=== PATIENT | female | born 1995 | race Caucasian/White ===

== ENCOUNTER 2020-09-20 01:41 | Emergency (ER) | payer OTHER ==
[~2020-09-20] VITALS: Ht 167.6 cm; Wt 99.8 kg
[2020-09-20 01:52] VITALS: BP 121/63
== END 2020-09-20 02:00 | disposition left against medical advice (07) ==
LOC: MED 01:41
DX: F41.0 Panic disorder [episodic paroxysmal anxiety] (principal); Z53.21 Procedure and treatment not carried out due to patient leaving prior to being seen by health care provider

== ENCOUNTER 2021-01-12 02:38 | Emergency (ER) | payer OTHER ==
[~2021-01-12] VITALS: Ht 170.2 cm; Wt 117.9 kg
[2021-01-12 02:54] VITALS: BP 122/62
--- NOTE | 2021-01-12 02:54 | NUR ---
TO BED AMBULATORY
--- NOTE | 2021-01-12 03:06 | NUR ---
PT AMBULATED TO BED 07.
--- NOTE | 2021-01-12 03:10 | NUR ---
25 YO/F BIB SELF W C/O MID-EPIGASTRIC PAIN 7/10 SHARP/PRESSURE LIKE,NON-RADIATING, INTERMITTENT X1 HOUR. PT DENIES N/V/D, CONSTIPATION OR FEVERS. DENIES CHEST PAIN OR SOB. DENIES URINARY BURNING, BLOOD INURINE OR ANY URINARY SYMPTOMS. BOWEL SOUNDS PRESENT THROUGHOUT, ABDOMEN SOFT, TENDER AT MIDEPIGASTRIC AREA. PT DENIES TAKING ANYTHING FOR PAIN. PATIENT KNEELING ON FLOOR HOLDING ABDOMEN. BREATHING EVEN AND UNLABORED. ERMD AT BEDSIDE. NAD NOTED, WILL CONTINUE TO MONITOR. PMH:THYROID DZ NKA
[2021-01-12] MEDS ORDERED: MORPHINE SULFATE 4 MG/ML SYR IM ONE (03:20)
[2021-01-12] MEDS ORDERED: ONDANSETRON 4 MG ODT PO ONE (03:20)
[2021-01-12] MEDS ORDERED: DICYCLOMINE HCL LIQUID 20 MG, ALUMINUM HYD/MAG/SIMETHICONE 30 ML, LIDOCAINE VISCOUS 2% ... PO ONE ×3 (03:20)
[2021-01-12 03:30] LABS: BASOPHILS # (AUTO) 0.1 K/uL (0.00-0.22); BASOPHILS % (AUTO) 0.6 % (0.0-2.0); EOSINOPHILS # (AUTO) 0.1 K/uL (0-0.4); EOSINOPHILS % (AUTO) 1.1 % (0.0-4.0); HEMATOCRIT 39.5 % (36-48); HEMOGLOBIN 12.6 g/dL (12.0-16.0); LYMPHOCYTES # (AUTO) 3.4 K/uL (2.5-16.5); LYMPHOCYTES % (AUTO) 27.2 % (20.5-51.1); MEAN CORPUSCULAR HEMOGLOBIN 26 pg (27-31); MEAN CORPUSCULAR HGB CONC 32 g/dL (33-37); MEAN CORPUSCULAR VOLUME 81.2 fL (80-94); MONOCYTES # (AUTO) 0.9 K/uL (0.8-1.0); MONOCYTES % (AUTO) 7.4 % (1.7-9.3); NEUTROPHILS # (AUTO) 7.9 K/uL (1.8-7.7); NEUTROPHILS % (AUTO) 63.7 % (42.2-75.2); PLATELET COUNT (AUTO) 295 K/uL (140-450); RED BLOOD CELL COUNT(AUTO) 4.86 MIL/uL (4.20-5.40); RED CELL DISTRIBUTION WIDTH 13.6 % (11.6-13.7); WHITE BLOOD COUNT (AUTO) 12.5 K/uL (4.8-10.8)
[2021-01-12 03:30] LABS: APPEARANCE,URINE SL CLOUDY (CLEAR); BILIRUBIN,URINE NEGATIVE (NEGATIVE); BLOOD, URINE 1+ (NEGATIVE); COLOR,URINE YELLOW (YELLOW); LEUKOCYTE ESTERASE ,URINE NEGATIVE (NEGATIVE); NITRITE, URINE NEGATIVE (NEGATIVE); UGLUCOSE NEGATIVE (NEGATIVE)
[2021-01-12] MEDS ORDERED: DICYCLOMINE HCL LIQUID 10 MG/5 ML UDC ONE (03:30)
[2021-01-12] MEDS ORDERED: ALUMINUM HYD/MAG/SIMETHICONE 30 ML UDC ONE (03:30)
--- NOTE | 2021-01-12 03:35 | NUR ---
PT REFUSED GI COCKTAIL, MORPHINE AND ZOFRAN MEDICATIONS AT THIS TIME. PT REPORTS SHE HAS NO PAIN AT THIS TIME.
[2021-01-12 03:36] LABS: RBC,URINE 0-5 /HPF (0-5); WBC,URINE 0-5 /HPF (0-5)
[2021-01-12 03:46] LABS: ALBUMIN 3.7 g/dL (3.4-5.0); ANION GAP 14.4 (8-16); CARBON DIOXIDE 26.1 mmol/L (21-32); CREATININE 0.8 mg/dL (0.6-1.3); POTASSIUM 3.5 mmol/L (3.5-5.1); TOTAL BILIRUBIN 0.3 mg/dL (0.0-1.0)
--- NOTE | 2021-01-12 05:04 | NUR ---
PT AMBULATED TO BATHROOM W STEADY GAIT. DENIES ANY PAIN AT THIS TIME. VSS.
[2021-01-12] MEDS ORDERED: cefTRIAXone 1,000 MG in LIDOCAINE MPF 1% 2.1 ML IM ONE ×2 (05:20→05:40)
[2021-01-12] MEDS ORDERED: cefTRIAXone 1,000 MG VIAL ONE (05:40)
[2021-01-12] MEDS ORDERED: LIDOCAINE MPF 1% 5 ML ONE (05:40)
--- NOTE | 2021-01-12 07:12 | NUR ---
Monica pappas in ED - 01/12/21 at 0713 by RONALD Pt report given to HONG WILLIAMSON. Transfer of care at this time.
--- NOTE | 2021-01-12 07:12 | NUR ---
Pt report given to HONG WILLIAMSON. Transfer of care at this time.
[2021-01-12 07:24] VITALS: BP 113/72
--- NOTE | 2021-01-12 07:24 | NUR ---
Patient does not wish to proceed with medical care recommended by VERONA MUÑIZ. Patient given information related to possible complications, up to and including , which could occur as a result of leaving hospital at this time. Patient verbalizes understanding of risks involved leaving against medical advice. Patient has signed AMA form. INFORMED HER THAT THERE WAS NO [employer] TECH DURING TIME HERE.
== END 2021-01-12 07:23 | disposition left against medical advice (07) ==
LOC: MED 02:38
DX: D72.829 Elevated white blood cell count, unspecified (principal); N39.0 Urinary tract infection, site not specified; E03.9 Hypothyroidism, unspecified
CPT/HCPCS: 36415; 80053; 81001; 81025; 83690; 84703; 85025; 87086; 96372; 99283; J0696; J2001; J2270; Q0162

== ENCOUNTER 2021-02-10 08:52 | Emergency (ER) | payer OTHER ==
[~2021-02-10] VITALS: Ht 167.6 cm; Wt 113.4 kg
[2021-02-10 08:58] VITALS: BP 143/78
--- NOTE | 2021-02-10 09:02 | NUR ---
PT AMB TO BED 2.
--- NOTE | 2021-02-10 09:10 | NUR ---
25 Y/O F HERE FOR A SORE THROAT FOR PAST 2 DAYS. PAIN IS 7/10 AND MORE WHEN SWALLOWING. SHE HAS WHITE PUSS LIKE MOUTH SORES ON HER THROAT UPON EXAMINATION. NKJesus HX: THYROIDE
--- NOTE | 2021-02-10 09:15 | NUR ---
DR PAYNE AT BEDSIDE.
[2021-02-10] MEDS ORDERED: DEXAMETHASONE 10 MG/ML VIAL PO ONE (09:20)
--- NOTE | 2021-02-10 09:33 | NUR ---
STREP A SCREEN RAPID AND THROAT CULTURE DONE AND IN THE LAB.
[2021-02-10] MEDS ORDERED: IBUP-1842 PO (10:07)
--- NOTE | 2021-02-10 10:17 | NUR ---
Patient discharged with v/s stable. Written and verbal after care instructions given and explained. Patient alert, oriented and verbalized understanding of instructions. Ambulatory with steady gait. All questions addressed prior to discharge. ID band removed. Patient advised to follow up with PMD. Rx of IBUPROFEN given. Opportunity to ask questions provided and answered.
--- NOTE | 2021-02-10 10:18 | NUR ---
Chart checked and completed. The patient's care was reviewed and supervised by Nadia Andrew RN.
== END 2021-02-10 10:15 | disposition home or self-care (01) ==
LOC: MED 08:52
DX: J02.9 Acute pharyngitis, unspecified (principal); E07.9 Disorder of thyroid, unspecified; Z79.899 Other long term (current) drug therapy
CPT/HCPCS: 87081; 99283; J1100

== ENCOUNTER 2021-12-13 15:59 | Emergency (ER) | payer OTHER ==
[~2021-12-13] VITALS: Ht 165.1 cm; Wt 132.9 kg
[~2021-12-13 15:59] MED LIST: IBUP-1842 PO
[2021-12-13 16:09] VITALS: BP 121/69
[2021-12-13 18:13] LABS: BASOPHILS % (AUTO) 0.4 % (0.0-2.0); EOSINOPHILS % (AUTO) 0.5 % (0.0-4.0); HEMATOCRIT 38.8 % (36-48); HEMOGLOBIN 12.2 g/dL (12.0-16.0); LYMPHOCYTES # (AUTO) 0.9 K/uL (2.5-16.5); LYMPHOCYTES % (AUTO) 9.4 % (20.5-51.1); MEAN CORPUSCULAR HEMOGLOBIN 25 pg (27-31); MEAN CORPUSCULAR HGB CONC 32 g/dL (33-37); MEAN CORPUSCULAR VOLUME 78.2 fL (80-94); MONOCYTES # (AUTO) 0.5 K/uL (0.8-1.0); NEUTROPHILS # (AUTO) 8.3 K/uL (1.8-7.7); NEUTROPHILS % (AUTO) 84.7 % (42.2-75.2); PLATELET COUNT (AUTO) 257 K/uL (140-450); RED BLOOD CELL COUNT(AUTO) 4.96 MIL/uL (4.20-5.40); WHITE BLOOD COUNT (AUTO) 9.8 K/uL (4.8-10.8)
[2021-12-13 18:26] LABS: APPEARANCE,URINE SL CLOUDY (CLEAR); BILIRUBIN,URINE 1+ (NEGATIVE); BLOOD, URINE 3+ (NEGATIVE); COLOR,URINE RED (YELLOW); LEUKOCYTE ESTERASE ,URINE TRACE (NEGATIVE); NITRITE, URINE NEGATIVE (NEGATIVE); UGLUCOSE NEGATIVE (NEGATIVE)
[2021-12-13 18:41] LABS: ALBUMIN 3.7 g/dL (3.4-5.0); ANION GAP 13.6 (8-16); CARBON DIOXIDE 25.3 mmol/L (21-32); CHLORIDE 107 mmol/L (98-107); CREATININE 0.7 mg/dL (0.6-1.3); GFR ARICAN-AMERICAN 128 mL/min (>90); GLUCOSE 148 mg/dL (74-106); LIPASE 85 U/L (73-393); POTASSIUM 3.9 mmol/L (3.5-5.1); SODIUM SERUM 142 mmol/L (136-145); TOTAL BILIRUBIN 0.9 mg/dL (0.0-1.0); UREA NITROGEN, BLOOD 12 mg/dL (7-18)
[2021-12-13 19:03] LABS: RBC,URINE TOO NUMEROUS TO COUN /HPF (0-5); WBC,URINE 20-60 /HPF (0-5)
[2021-12-13 19:04] LABS: YEAST,URINE None Seen /HPF (None Seen)
[2021-12-13 19:05] LABS: TRICHOMONAS,URINE None Seen /HPF (None Seen)
[2021-12-13] MEDS ORDERED: KETOROLAC 15 MG/ML VIAL IM ONE (19:20)
[2021-12-13] MEDS ORDERED: ONDANSETRON 4 MG ODT PO ONE (19:55)
[2021-12-13] MEDS ORDERED: IBUP-2213 PO (21:50)
[2021-12-13] MEDS ORDERED: ONDA-188 SL (21:51)
[2021-12-13] MEDS ORDERED: CEPH-588 PO (21:53)
[2021-12-13 22:03] VITALS: BP 121/69
--- NOTE | 2021-12-13 22:03 | NUR ---
Patient discharged with v/s stable. Written and verbal after care instructions given and explained. Patient alert, oriented and verbalized understanding of instructions. [g ED.DCMODE] with [g ED.D/CMODE]. All questions addressed prior to discharge. ID band removed. Patient advised to follow up with PMD. Rx of KEFLEX, IBUPROFEN, ZOFRAN given. Patient educated on indication of medication including possible reaction and side effects. Opportunity to ask questions provided and answered.
== END 2021-12-13 22:03 | disposition home or self-care (01) ==
LOC: MED 15:59
DX: K80.50 Calculus of bile duct without cholangitis or cholecystitis without obstruction (principal); N39.0 Urinary tract infection, site not specified; E03.9 Hypothyroidism, unspecified; Z79.2 Long term (current) use of antibiotics; Z79.899 Other long term (current) drug therapy; Z79.1 Long term (current) use of non-steroidal anti-inflammatories (NSAID)
CPT/HCPCS: 36415; 76705; 80053; 81001; 81025; 83690; 85025; 87086; 96372; 99284; J1885; Q0092; Q0162